=== PATIENT | male | born 2000 | race Caucasian/White ===

== ENCOUNTER 2022-01-06 06:29 | Emergency (ER) | payer BC ==
[~2022-01-06] VITALS: Ht 193 cm; Wt 87.5 kg
[2022-01-06 06:43] VITALS: BP 139/80
--- NOTE | 2022-01-06 06:50 | NUR ---
Patient ambulated to bed 11.
--- NOTE | 2022-01-06 06:54 | NUR ---
Dr. Mariscal examming patient.
[2022-01-06] MEDS ORDERED: ONDANSETRON 4 MG ODT PO ONE (06:55)
[2022-01-06] MEDS ORDERED: DICYCLOMINE HCL LIQUID 20 MG, ALUMINUM HYD/MAG/SIMETHICONE 30 ML, LIDOCAINE VISCOUS 2% ... PO ONE ×6 (06:55→08:15)
[2022-01-06 07:47] LABS: HEMATOCRIT 51.9 % (36-52); HEMOGLOBIN 17.5 g/dL (12.0-18.0); MEAN CORPUSCULAR HEMOGLOBIN 29 pg (27-31); MEAN CORPUSCULAR HGB CONC 34 g/dL (33-37); MEAN CORPUSCULAR VOLUME 84.7 fL (80-94); PLATELET COUNT (AUTO) 140 K/uL (140-450); RED BLOOD CELL COUNT(AUTO) 6.13 MIL/uL (4.20-6.10)
[2022-01-06 08:01] LABS: ALBUMIN 4.2 g/dL (3.4-5.0); ANION GAP 11.9 (8-16); CARBON DIOXIDE 34.1 mmol/L (21-32); CREATININE 1.1 mg/dL (0.6-1.3); TOTAL BILIRUBIN 1.6 mg/dL (0.0-1.0)
[2022-01-06] MEDS ORDERED: NACL 0.9% 1,000 ML IV ONE (08:15)
[2022-01-06] MEDS ORDERED: ONDANSETRON 4 MG/2 ML VIAL IVP ONE (08:15)
[2022-01-06] MEDS ORDERED: ALUMINUM HYD/MAG/SIMETHICONE 30 ML UDC ONE (08:22)
[2022-01-06] MEDS ORDERED: DICYCLOMINE HCL LIQUID 10 MG/5 ML UDC ONE (08:22)
--- NOTE | 2022-01-06 08:22 | NUR ---
21 y/o male, c/o body aches with n&v for 5 days, pt states he has not been able to hold food or fluids down. skin is pink/warm/clammy. a&o x4 ambulates with assist due to body aches and weakness. lungs clear bl, heart rate even and regular. pt denies dysuria, hematuria, urinary frequency or retention, or anyone sick in the household with the same symptoms. pt denies any fever, cp, sob, or cough at this time. pt states pain is 4/10 at this time. patient positioned for comfort. hob elevated. bed down. ermd made aware of pt. pmh: denies nka med: denies
--- NOTE | 2022-01-06 08:33 | NUR ---
call light left at bedside within reach, pt resting at this time.
[2022-01-06 08:40] LABS: EOSINOPHILS % (MANUAL) 1 % (0-4); LYMPHOCYTES % (MANUAL) 21 % (20-46); MONOCYTES % (MANUAL) 15 % (5-12)
--- NOTE | 2022-01-06 08:54 | NUR ---
Ultrasound at bedside.
--- NOTE | 2022-01-06 09:59 | NUR ---
pt given ice chips, okay per md ortiz at this time. denies nausea or vomiting.
[2022-01-06] MEDS ORDERED: MAG355OR2 PO (10:13)
[2022-01-06] MEDS ORDERED: ONDA-188 PO (10:13)
--- NOTE | 2022-01-06 10:32 | NUR ---
pt tolerated ice chips at this time
--- NOTE | 2022-01-06 10:34 | NUR ---
Patient discharged with v/s stable. Written and verbal after care instructions given and explained. Patient alert, oriented and verbalized understanding of instructions. Ambulatory to car. All questions addressed prior to discharge. ID band removed. Patient advised to follow up with PMD. Rx of mag milan cardoza (sent) given. Patient educated on indication of medication including possible reaction and side effects. Opportunity to ask questions provided and answered.
[2022-01-06 10:35] VITALS: BP 139/80
== END 2022-01-06 10:35 | disposition home or self-care (01) ==
LOC: MED 06:29
DX: B34.9 Viral infection, unspecified (principal); R74.01 Elevation of levels of liver transaminase levels; F12.90 Cannabis use, unspecified, uncomplicated; Z79.899 Other long term (current) drug therapy
CPT/HCPCS: 36415; 76705; 80053; 83690; 85025; 96361; 96374; 99284; J2405; J7030; Q0092